=== PATIENT | female | born 1995 ===

== ENCOUNTER 2017-02-13 20:07 | Emergency (ER) | payer SELFPAY ==
[2017-02-13 20:25] VITALS: RESP 16
--- NOTE | 2017-02-13 21:14 | ED PDOC ---
HPI: Female Pain Time Seen by Provider: 02/13/17 20:40 Chief Complaint (Nursing): Female Genitourinary Chief Complaint (Provider): Abdominal Pain with EGA of 9 Weeks History Per: Patient History/Exam Limitations: no limitations Onset/Duration Of Symptoms: Days (x1 week), Intermittent Episodes Current Symptoms Are (Timing): Gone Now (not present in ED) Severity: Moderate Associated Symptoms: Constipation, Other (clear vaginal discharge) Additional Complaint(s): Ruth Olivia is a 21 year old female, with an EGA of 9 weeks and no pertinent past medical history, who presents to the ED on 02/13/17 for the evaluation of moderate lower abdominal pain that she has experienced intermittently x1 week, not currently present upon ED evaluation. Associated clear vaginal discharge also reported in addition to some feelings of constipation, which patient reports is something that she has experienced previously. Denies vaginal bleeding. Of note, patient reports having lost her previous due to bradycardia and a missed . She has had a previous ultrasound for this , reportedly performed within the [place], that showed an intrauterine . PMD: Татьяна Randolph Past Medical History Reviewed: Historical Data, Nursing Documentation, Vital Signs Vital Signs: Last Vital Signs Temp 97.4 F L 02/13/17 20:21 Pulse 89 02/13/17 20:21 Resp 16 02/13/17 20:21 BP 107/56 L 02/13/17 20:21 Pulse Ox 100 02/13/17 20:21 - Medical History PMH: Asthma - Family History Family History: States: Unknown Family Hx - Immunization History Hx Tetanus Toxoid Vaccination: No Hx Influenza Vaccination: No Hx Pneumococcal Vaccination: No - Home Medications Home Medications: Ambulatory Orders Medication Instructions Recorded Epinephrine HCl [Epipen 0.3 mg IJ ONCE PRN 09/13/16 Auto-Injector] Multivit/Folic Acid/I 1 tab PO DAILY #30 tab 02/13/17 [ Plus] - Allergies Allergies/Adverse Reactions: Allergies Allergy/AdvReac Type Severity Reaction Status Date / Time amoxicillin Allergy RASH Verified 09/13/16 12:51 morphine Allergy RASH Verified 09/13/16 12:51 strawberry Allergy ITCHING Verified 09/13/16 12:51 seafood Allergy SWELLING Uncoded 09/13/16 12:51 Review of Systems Gastrointestinal: Positive for: Abdominal Pain (intermittent lower abdominal, none in ED) Genitourinary Female: Positive for: Vaginal Discharge (clear). Negative for: Vaginal Bleeding Physical Exam - Reviewed Nursing Documentation Reviewed: Yes Vital Signs Reviewed: Yes - Physical Exam Appears: Positive for: Non-toxic, No Acute Distress Cardiovascular/Chest: Positive for: Regular Rate, Rhythm. Negative for: Murmur Respiratory: Positive for: Normal Breath Sounds. Negative for: Respiratory Distress Gastrointestinal/Abdominal: Positive for: Normal Exam, Soft. Negative for: Tenderness Pelvic Exam: Positive for: Bimanual Exam Normal (cervix is closed), Discharge ( clear), Other (examination chaperoned by Shakira Best RN) Neurologic/Psych: Positive for: Alert, Oriented - Laboratory Results Result Diagrams: 02/13/17 21:00 02/13/17 21:00 - ECG O2 Sat by Pulse Oximetry: 100 (RA) Pulse Ox Interpretation: Normal Medical Decision Making Medical Decision Makin:40 Initial Impression: constipation and normal physiologic vaginal discharge in Initial Plan: * OB 1st Tri and OB Transvaginal US * Labs * Beta HCG * Reevaluation Scribe Attestation: Documented by Tanvi Mccarty, acting as a scribe for Mk Linn MD. Provider Scribe Attestation: All medical record entries made by the Scribe were at my direction and personally dictated by me. I have reviewed the chart and agree that the record accurately reflects my personal performance of the history, physical exam, medical decision making, and the department course for this patient. I have also personally directed, reviewed, and agree with the discharge instructions and disposition. Disposition - Clinical Impression Clinical Impression: Threatened - Disposition [facility]] Disposition Time: 23:00 Condition: STABLE Prescriptions: Multivit/Folic Acid/I [ Plus] 1 tab PO DAILY #30 tab Instructions: Threatened Miscarriage (ED)
[2017-02-13 21:18] LABS: BASO % 0.5 % (0.0-2.0); EOS # 0.1 K/uL (0.0-0.7); EOS % 1.4 % (0.0-4.0); LYMPH # 2.5 K/uL (1.0-4.3); LYMPH % 26.8 % (20.0-40.0); MEAN CELL VOLUME 89.4 fl (81.0-99.0); MEAN CORPUSCULAR HEMOGLOBIN 30.1 pg (27.0-31.0); MEAN CORPUSCULAR HGB CONC 33.6 g/dL (33.0-37.0); MEAN PLATELET VOLUME 8.2 fl (7.2-11.7); MONO # 0.7 K/uL (0.0-0.8); MONO % 7.9 % (0.0-10.0); NEUT # 5.8 K/uL (1.8-7.0); NEUT % 63.4 % (50.0-75.0); NRBC % 0.2 % (0.0-0.0); RED CELL DISTRIBUTION WIDTH 13.2 % (11.5-14.5); WHITE BLOOD COUNT 9.1 K/uL (4.8-10.8)
[2017-02-13 21:36] LABS: BLOOD UREA NITROGEN 11 mg/dl (7-17); CALCIUM 8.8 mg/dL (8.4-10.2); CARBON DIOXIDE 23 mmol/L (22-30); CHLORIDE 106 mmol/L (98-107); GFR AFRICAN-AMERICAN > 60; GLUCOSE,RANDOM 69 mg/dL (65-105); SODIUM 140 mmol/l (132-148)
--- NOTE | 2017-02-13 23:37 | US ---
EXAM: US First Trimester, Transabdominal. CLINICAL HISTORY: 21 years old, female; Signs and symptoms; Lmp or gestational age (in weeks): 12/15/16 lmp; Other: C/O cramping, funny feeling in pelvis; ; Additional info: HX of spont ab p/w lower abd pain, approx 9 wks TECHNIQUE: Real-time transabdominal obstetrical ultrasound of the maternal pelvis and a first trimester with image documentation. COMPARISON: There are no prior studies for comparison. FINDINGS: Uterus: Uterus measures approximately 9 x 6.2 x 8.4 cm. There is a single gestational sac in uterus. IMPRESSION: Limited evaluation of the gravid uterus, intrauterine gestation with EXAM: US , Transvaginal. CLINICAL HISTORY: 21 years old, female; Signs and symptoms; Lmp or gestational age (in weeks): 12/15/16 lmp; Other: C/O cramping, funny feeling in pelvis; ; Additional info: HX of spont ab p/w lower abd pain, approx 9 wks TECHNIQUE: Real-time transvaginal obstetrical ultrasound of the maternal pelvis and a first trimester with image documentation. Transvaginal imaging was used for better evaluation of the fetus and adnexa. EXAM DATE/TIME: 02/13/2017 8:54 PM COMPARISON: There are no prior studies for comparison. FINDINGS: Gestation: There is a single gestational sac in uterus. [place] rump length measures 19.6 mm. There is a heart rate of 147 beats per minute. A yolk sac is present, internal diameter measures 3.5 mm. Ovaries: Right ovary measures 3.4 x 2.5 x 2.3 cm.There are multiple small follicles. Left ovary measures approximately 2.3 x 1.9 x 1.3 cm. There are small follicles on the left.There is flow in both ovaries on Doppler imaging. IMPRESSION: 8 week 4 day single living intrauterine gestation, estimated date of delivery 09/21/17
[2017-02-13 23:58] VITALS: BP 110/72; PULSE 86; TEMP 98.2
[2017-02-14 15:49] VITALS: O2SAT 100
== END 2017-02-13 23:57 | disposition home or self-care (01) ==
LOC: H.ER 20:07
DX: O20.0 Threatened abortion (principal); Z3A.08 8 weeks gestation of pregnancy; O26.891 Other specified pregnancy related conditions, first trimester

== ENCOUNTER 2017-03-25 11:11 | Emergency (ER) | payer MEDICAID, OTHER ==
[2017-03-25 11:53] VITALS: BP 103/62; PULSE 75; RESP 14; TEMP 98.1; O2SAT 100
--- NOTE | 2017-03-25 12:23 | ED PDOC ---
HPI: CCC, URI, Sore Throat Time Seen by Provider: 03/25/17 12:07 Chief Complaint (Nursing): ENT Problem Chief Complaint (Provider): ENT Problem History Per: Patient History/Exam Limitations: no limitations Onset/Duration Of Symptoms: Days (x1) Current Symptoms Are (Timing): Still Present Location Of Pain: Ear(s) (left earache) Associated Symptoms: Fever. denies: Sore Throat, Cough Ear Symptoms: Left: Ear Pain Additional Complaint(s): 12:07 Ruth Olivia, 21 year old female presents to the ED on 03/25/17, with bilateral lower pelvic pain beginning yesterday. The patient states the pain has improved, but is still present. The patient's last ultrasound was taken last month and the results were normal. She denies any vaginal bleeding. In addition, the patient also reports she developed a left ear ache and felt like she had a fever, but did not take her temperature. The patient took Tylenol , stating her last dose of Tylenol was yesterday. The patient has no fever today and denies any occurrence of sore throat, cough, congestion, trauma, history of ectopic , nausea, vomiting, diarrhea, or dysuria. The patient's last menstrual period was December 15. Of note, the patient is under the care of Dr. Traore Past Medical History Reviewed: Historical Data, Nursing Documentation, Vital Signs Vital Signs: Last Vital Signs Temp 98.1 F 03/25/17 11:40 Pulse 75 03/25/17 11:40 Resp 14 03/25/17 11:40 BP 103/62 03/25/17 11:40 Pulse Ox 100 03/25/17 12:38 - Medical History PMH: Asthma - Family History Family History: States: Unknown Family Hx - Immunization History Hx Tetanus Toxoid Vaccination: No Hx Influenza Vaccination: No Hx Pneumococcal Vaccination: No - Home Medications Home Medications: Ambulatory Orders Medication Instructions Recorded Epinephrine HCl [Epipen 0.3 mg IJ ONCE PRN 09/13/16 Auto-Injector] Multivit/Folic Acid/I 1 tab PO DAILY #30 tab 02/13/17 [ Plus] - Allergies Allergies/Adverse Reactions: Allergies Allergy/AdvReac Type Severity Reaction Status Date / Time amoxicillin Allergy RASH Verified 03/25/17 11:42 morphine Allergy RASH Verified 03/25/17 11:42 strawberry Allergy ITCHING Verified 03/25/17 11:42 seafood Allergy SWELLING Uncoded 03/25/17 11:42 Review of Systems Constitutional: Negative for: Fever, Other (no history of trauma) ENT: Positive for: Ear Pain (Left earache). Negative for: Nose Congestion, Throat Pain (no sore throat) Respiratory: Negative for: Cough Gastrointestinal: Positive for: Abdominal Pain (bilateral lower pelvic pain). Negative for: Nausea, Vomiting, Diarrhea Genitourinary Female: Negative for: Dysuria, Vaginal Bleeding, Other (no history of ectopic ) Physical Exam - Reviewed Nursing Documentation Reviewed: Yes Vital Signs Reviewed: Yes - Physical Exam Appears: Positive for: Well, Non-toxic, No Acute Distress Head Exam: Positive for: ATRAUMATIC, NORMOCEPHALIC Skin: Positive for: Normal Color, Warm, Dry Eye Exam: Positive for: Normal appearance ENT: Positive for: Normal ENT Inspection Neck: Positive for: Normal Cardiovascular/Chest: Positive for: Regular Rate, Rhythm, Chest Non Tender Respiratory: Positive for: Normal Breath Sounds. Negative for: Respiratory Distress Gastrointestinal/Abdominal: Positive for: Normal Exam, Soft. Negative for: Tenderness Extremity: Positive for: Normal ROM Neurologic/Psych: Positive for: Alert, Oriented (x3) - Laboratory Results Result Diagrams: 03/25/17 12:40 03/25/17 12:40 - ECG O2 Sat by Pulse Oximetry: 100 (RA) Pulse Ox Interpretation: Normal - Progress ED Course And Treament: Pelvic US: Fourteen weeks 4 days live intrauterine gestation. Adequate interval progression compared to the prior study. Medical Decision Making Medical Decision Makin:07 Initial Impression: Bilateral lower pelvic pain, left earache, subjective fever. Initial Plan: * Beta-HCG Quantitative STAT * COMP Metabolic Panel STAT * CBC (with differential) STAT * Urine C&S [Urine Culture] STAT * IV Insertion (Saline Lock) Once * Influenza A B STAT * Rapid Strep Group A Antigen STAT * Urinalysis STAT * OB Transvaginal [US] STAT * Reevaluation Scribe~Attestation: Documented by Geri Perez, acting as a~franklinibe~for Armando Candelaria PA-C. Provider~Scribe~Attestation: All medical record entries made by the~Ashelywere at my direction and personally dictated by me. I have reviewed the chart and agree that the record accurately reflects my personal performance of the history, physical exam, medical decision making, and the department course for this patient. I have also personally directed, reviewed, and agree with the discharge instructions and disposition. Disposition - Clinical Impression Clinical Impression: - Patient ED Disposition Is Patient to be Admitted: No - Disposition Referrals: Zuly Traore MD [Staff Provider] - Disposition: Routine/Home Disposition Time: 15:26 Condition: STABLE Additional Instructions: Follow up with your OBGYN in 2 days WITHOUT FAIL. Instructions: (ED) Print Language: SAMI
[2017-03-25 12:50] LABS: BASO % 0.3 % (0.0-2.0); EOS # 0.1 K/uL (0.0-0.7); EOS % 1.4 % (0.0-4.0); HEMATOCRIT 37.1 % (34.0-47.0); LYMPH % 24.1 % (20.0-40.0); MEAN CELL VOLUME 90.9 fl (81.0-99.0); MEAN CORPUSCULAR HEMOGLOBIN 30.5 pg (27.0-31.0); MEAN CORPUSCULAR HGB CONC 33.6 g/dL (33.0-37.0); MEAN PLATELET VOLUME 8.2 fl (7.2-11.7); MONO # 0.5 K/uL (0.0-0.8); MONO % 5.8 % (0.0-10.0); NEUT # 5.7 K/uL (1.8-7.0); NEUT % 68.4 % (50.0-75.0); RED CELL DISTRIBUTION WIDTH 14.2 % (11.5-14.5); WHITE BLOOD COUNT 8.3 K/uL (4.8-10.8)
[2017-03-25 12:59] LABS: RBC URINE 2 /hpf (0-3); URINE BACTERIA RARE (<OCC); URINE BILIRUBIN NEGATIVE (NEGATIVE); URINE BLOOD NEGATIVE (NEGATIVE); URINE COLOR YELLOW (YELLOW); URINE GLUCOSE (UA) NEG (Normal); URINE KETONE NEGATIVE (NEGATIVE); URINE LEUKOCYTE ESTERASE NEG Leu/uL (Negative); URINE PROTEIN NEGATIVE (NEGATIVE); URINE UROBILINOGEN 0.2-1.0 mg/dL (0.2-1.0); WBC URINE 2 /hpf (0-5)
[2017-03-25 14:18] LABS: CHLORIDE 105 mmol/L (98-107)
[2017-03-25 14:19] LABS: POTASSIUM 4.2 MMOL/L (3.6-5.0); SODIUM 137 mmol/l (132-148)
[2017-03-25 14:21] LABS: BILIRUBIN,TOTAL 0.3 mg/dl (0.2-1.3); CARBON DIOXIDE 25 mmol/L (22-30); GFR AFRICAN-AMERICAN > 60
[2017-03-25 14:22] LABS: ALB/GLOB RATIO 1.2 (1.0-2.1); ALKALINE PHOSPHATASE 39 U/L (38-126); ALT/SGPT 21 U/L (9-52); AST/SGOT 20 U/L (14-36); BLOOD UREA NITROGEN 7 mg/dl (7-17); CALCIUM 8.7 mg/dL (8.4-10.2); GLUCOSE,RANDOM 72 mg/dL (65-105); TOTAL PROTEIN 6.5 G/DL (6.3-8.2)
--- NOTE | 2017-03-25 15:23 | US ---
PROCEDURE: Limited obstetrical ultrasound HISTORY: pelvic pain COMPARISON: 02/13/2017.. TECHNIQUE: Standard protocol for this study/examination. FINDINGS: Variable presentation. Anterior Placenta. No evidence of abruption or previa Gestational age derived from LMP 14 weeks 2 days Gestational age derived from the following biometric parameters 14 weeks 4 days . Biparietal diameter 2.74 cm Head circumference9.33 cm Abdominal circumference 8.42 cm Femur length 1.45 cm Estimated weight 99.1 g Calculated cardiac rate 143 beats per min. Closed cervix measuring 2.94 cm IMPRESSION: Fourteen weeks 4 days live intrauterine gestation. Adequate interval progression compared to the prior study. THAD based on LMP: 09/21/2017 THAD based on biometry: 09/19/2017
== END 2017-03-25 16:13 | disposition home or self-care (01) ==
LOC: H.ER 11:11
DX: R10.2 Pelvic and perineal pain (principal); O26.892 Other specified pregnancy related conditions, second trimester; H92.02 Otalgia, left ear; J45.909 Unspecified asthma, uncomplicated; Z88.0 Allergy status to penicillin

== ENCOUNTER 2017-05-02 08:44 | Emergency (ER) | payer MEDICAID ==
[2017-05-02 08:49] VITALS: BMI 22.4
[2017-05-02 08:51] VITALS: BP 116/64; PULSE 104; RESP 20; TEMP 98.2; O2SAT 100
--- NOTE | 2017-05-02 09:13 | ED PDOC ---
HPI: Female Pain Time Seen by Provider: 05/02/17 09:01 Chief Complaint (Provider): Vaginal spotting History Per: Patient History/Exam Limitations: no limitations Onset/Duration Of Symptoms: Days (Today) Current Symptoms Are (Timing): Gone Now Additional Complaint(s): Pt. woke up today and went to the bathroom. She noticed a small pink discharge come from her vaginal area. No other pain, weakness, headaches, dysuria, nausea, vomit. No back pain. No weakness. fever, cough. Had ultrasound and found out sex of baby. Past Medical History Reviewed: Nursing Documentation, Vital Signs Vital Signs: Last Vital Signs Temp 98.2 F 05/02/17 08:50 Pulse 104 H 05/02/17 08:50 Resp 20 05/02/17 08:50 BP 116/64 05/02/17 08:50 Pulse Ox 100 05/02/17 08:50 - Surgical History Surgical History: No Surg Hx - Family History Family History: States: Unknown Family Hx - Social History Current smoker - smoking cessation education provided: No Alcohol: None Drugs: Denies - Immunization History Hx Tetanus Toxoid Vaccination: No Hx Influenza Vaccination: No Hx Pneumococcal Vaccination: No - Home Medications Home Medications: Ambulatory Orders Medication Instructions Recorded Epinephrine HCl [Epipen 0.3 mg IJ ONCE PRN 09/13/16 Auto-Injector] Multivit/Folic Acid/I 1 tab PO DAILY #30 tab 02/13/17 [ Plus] - Allergies Allergies/Adverse Reactions: Allergies Allergy/AdvReac Type Severity Reaction Status Date / Time amoxicillin Allergy RASH Verified 03/25/17 11:42 morphine Allergy RASH Verified 03/25/17 11:42 strawberry Allergy ITCHING Verified 03/25/17 11:42 seafood Allergy SWELLING Uncoded 03/25/17 11:42 Review of Systems Constitutional: Negative for: Weakness Eyes: Negative for: Vision Change Cardiovascular: Negative for: Chest Pain, Orthopnea, Edema, Light Headedness Respiratory: Negative for: Cough, Shortness of Breath Gastrointestinal: Negative for: Nausea, Vomiting, Abdominal Pain Genitourinary Female: Positive for: Vaginal Discharge, Vaginal Bleeding. Negative for: Dysuria, Hematuria, Pelvic Pain Musculoskeletal: Negative for: Neck Pain Skin: Negative for: Rash Neurological: Negative for: Weakness, Numbness Physical Exam - Reviewed Nursing Documentation Reviewed: Yes Vital Signs Reviewed: Yes - Physical Exam Appears: Positive for: Well, Non-toxic, No Acute Distress Head Exam: Positive for: ATRAUMATIC, NORMAL INSPECTION, NORMOCEPHALIC Skin: Positive for: Normal Color, Warm, DRY Neck: Positive for: Normal, Painless ROM Cardiovascular/Chest: Positive for: Regular Rate, Rhythm Respiratory: Positive for: CNT, Normal Breath Sounds Gastrointestinal/Abdominal: Positive for: Normal Exam, Bowel Sounds, Soft. Negative for: Tenderness Back: Positive for: Normal Inspection. Negative for: L CVA Tenderness, R CVA Tenderness Extremity: Positive for: Normal ROM. Negative for: Tenderness, Pedal Edema Neurologic/Psych: Positive for: Alert, Oriented - ECG O2 Sat by Pulse Oximetry: 100 Pulse Ox Interpretation: Normal - Progress ED Course And Treament: US from beginning of March, MARIE. 1109: Stable. AAOx3. Pain free. Tolerated PO. FU with obgyn. FHR 141. Disposition - Clinical Impression Clinical Impression: Abdominal pain in - Patient ED Disposition Is Patient to be Admitted: No Counseled Patient/Family Regarding: Studies Performed, Diagnosis, Need For Followup - Disposition [facility]] - 05/03/17 Disposition: Routine/Home Disposition Time: 11:11 Condition: STABLE Additional Instructions: Return if not better in 3 days. Instructions: (ED) Forms: [employer] (Swedish)
== END 2017-05-02 11:24 | disposition home or self-care (01) ==
LOC: H.ER 08:44
DX: O26.899 Other specified pregnancy related conditions, unspecified trimester (principal)

== ENCOUNTER 2017-05-13 17:40 | Emergency (ER) | payer MEDICAID ==
[2017-05-13 18:08] VITALS: BMI 23.9
[2017-05-13 18:41] LABS: URINE BILIRUBIN NEGATIVE (NEGATIVE); URINE BLOOD NEGATIVE (NEGATIVE); URINE COLOR AMBER (YELLOW); URINE GLUCOSE (UA) NEG (Normal); URINE KETONE NEGATIVE (NEGATIVE); URINE LEUKOCYTE ESTERASE NEG Leu/uL (Negative); URINE PROTEIN NEGATIVE (NEGATIVE); URINE UROBILINOGEN 0.2-1.0 mg/dL (0.2-1.0)
--- NOTE | 2017-05-13 19:26 | US ---
EXAM: US Uterus, Limited CLINICAL HISTORY: 21 years old, female; Pain; Other: Cramps; Gestational age or lmp: 12/08; ; Additional info: Abdominal cramping, low back pain, 21 weeks , evaluate cervix TECHNIQUE: Real-time ultrasound of the maternal uterus (limited) with image documentation. EXAM DATE/TIME: 05/13/2017 6:23 PM COMPARISON: No relevant prior studies available. FINDINGS: A limited exam only was performed, specifically to evaluate the cervix. Only the cervix was imaged. The fetus was not evaluated. The cervix ranges in length from 3.7 to 4.0 cm transvaginally (normal greater than 3 cm). It appears closed. No evidence of funneling. IMPRESSION: Limited exam. Only the cervix was imaged. The fetus was not evaluated. Normal cervical length, ranging from 3.7 to 4.0 cm. No evidence of cervical incompetence.
== END 2017-05-13 19:45 | disposition home or self-care (01) ==
LOC: H.EROB2 17:40
DX: O47.02 False labor before 37 completed weeks of gestation, second trimester (principal); Z3A.21 21 weeks gestation of pregnancy; O09.299 Supervision of pregnancy with other poor reproductive or obstetric history, unspecified trimester

== ENCOUNTER 2017-05-31 23:21 | Observation (INO) | payer MEDICAID, OTHER ==
[2017-05-31 23:59] VITALS: BMI 26.4
[2017-06-01] MEDS ORDERED: Sodium Chloride 0.9% 1,000 ML IV SCH ×2 (00:30)
[2017-06-01] MEDS ORDERED: Lactated Ringer's 1,000 ML IV SCH ×2 (00:45)
[2017-06-01 00:53] LABS: BASO % 0.4 % (0.0-2.0); EOS # 0.3 K/uL (0.0-0.7); EOS % 2.8 % (0.0-4.0); HEMOGLOBIN 10.3 g/dL (12.0-16.0); LYMPH # 3.1 K/uL (1.0-4.3); LYMPH % 26.9 % (20.0-40.0); MEAN CELL VOLUME 91.5 fl (81.0-99.0); MEAN CORPUSCULAR HEMOGLOBIN 30.1 pg (27.0-31.0); MEAN PLATELET VOLUME 8.8 fl (7.2-11.7); NEUT % 60.9 % (50.0-75.0); RBC 3.41 Mil/uL (3.80-5.20); RED CELL DISTRIBUTION WIDTH 13.4 % (11.5-14.5); WHITE BLOOD COUNT 11.5 K/uL (4.8-10.8)
[2017-06-01 01:03] LABS: ALB/GLOB RATIO 1.1 (1.0-2.1); ALBUMIN 3.2 g/dL (3.5-5.0); ALT/SGPT 43 U/L (9-52); AST/SGOT 22 U/L (14-36); BLOOD UREA NITROGEN 9 mg/dl (7-17); CALCIUM 8.5 mg/dL (8.4-10.2); GFR AFRICAN-AMERICAN > 60; GFR NON-AFRICAN AMERICAN > 60
[2017-06-01 01:16] LABS: SQUAMOUS EPITHIAL 1 /hpf (0-5); URINE AMORPHOUS SEDIMENT MODERATE /ul (<OCC); URINE BILIRUBIN NEGATIVE (NEGATIVE); URINE BLOOD NEGATIVE (NEGATIVE); URINE CLARITY CLOUDY (Clear); URINE COLOR YELLOW (YELLOW); URINE GLUCOSE (UA) NEG (Normal); URINE LEUKOCYTE ESTERASE NEG Leu/uL (Negative); URINE NITRATE NEGATIVE (NEGATIVE); URINE PROTEIN NEGATIVE (NEGATIVE); URINE UROBILINOGEN 0.2-1.0 mg/dL (0.2-1.0)
--- NOTE | 2017-06-01 07:58 | OBHP ---
Datetime: 06/01/2017 00:33 IP Adm Impression: , intrauterine ; No Active Labor IP Chief Complaint Other: diarrhea and abdominal cramp IP Admit Plan: Observation/Evaluation; Discharge home Admit Comment, IP Provider: 21 yo at 24 weeks of gestational age EDC 09/21/17 confirmed w/ US at 8 weeks presents to the ED complaining abdominal cramping and 10 episodes of diarrhea since 4 a m on 05/31/17. pt describes diarrhea as 'mustard like'. denies seeing blood or mucus in stool. no rece nt travel or recent abx use. denies dysuria, urinary frequency or urgency. denies fever, chills or vo miting. Patient denies any contractions, vaginal bleeding, leakage of fluids. last OB visit to [facility] on 05/17/17 and next appointment on 06/16/17. 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 medications: PNV, acetaminophen prn allergies: amoxicillin--rash; morphine--bradycardia; peanuts and strawberries..rash, seafood and s hrimp...anaphylaxis. Assessment: 21 yo at 24 weeks GA presents to OB ED for multiple episodes of diarrhea and a bdominal cramping. plan: continue heart monitoring IV fluids UA, CBC, CMP will be ordered if labs comes negative, pt will be safely discharged home w/ gastroenteritis precaution. case presented and discussed with on-call attending Dr. Gamboa. Sultan Morales, PGY1 obh addendum pt seen _ evaluated by me agree with above assessment and plan s: pt states she feels much better this morning. denies abd cramping or continued diarrhea i: dehydration with diarrhea p: ok for d/c home p: as Extremities - PN: Normal Abdomen - PN: Normal Back - PN: Normal Lungs - PN: Normal Heart - PN: Abnormal Neurologic - PN: Normal HEENT - PN: Normal General - PN: Normal Comments, ACOG Physical Exam: cardio: RRR, systolic heart murmur Gestation - Est Wks by US: 24.0 IP Hx Assessment: The History has been Reviewed and is Current EGA AdmitDate IP: 24.0 Vital Signs Provider: Reviewed IP Chief Complaint: Maternal discomfort
== END 2017-06-01 08:00 | disposition home or self-care (01) ==
LOC: H.EROB2 23:21 → H.L&D 06-01 04:50
PROVIDERS: ADMIT Obstetrics & Gynecology; ATTEND Obstetrics & Gynecology
DX: O99.89 Other specified diseases and conditions complicating pregnancy, childbirth and the puerperium (principal); Z3A.24 24 weeks gestation of pregnancy; R19.7 Diarrhea, unspecified; E86.0 Dehydration; Z88.6 Allergy status to analgesic agent; Z91.010 Allergy to peanuts; Z88.0 Allergy status to penicillin; Z91.013 Allergy to seafood

== ENCOUNTER 2017-06-09 17:50 | Emergency (ER) | payer MEDICAID, OTHER ==
[2017-06-09 19:16] VITALS: BMI 25.1
[2017-06-09] MEDS ORDERED: Lactated Ringer's 1,000 ML IV SCH (19:45)
[2017-06-09 20:05] LABS: SQUAMOUS EPITHIAL 7 /hpf (0-5); URINE BACTERIA RARE (<OCC); URINE BILIRUBIN NEGATIVE (NEGATIVE); URINE BLOOD NEGATIVE (NEGATIVE); URINE CLARITY SLIGHTY-CLOUDY (Clear); URINE COLOR YELLOW (YELLOW); URINE GLUCOSE (UA) NEG (Normal); URINE LEUKOCYTE ESTERASE NEG Leu/uL (Negative); URINE NITRATE NEGATIVE (NEGATIVE); URINE PROTEIN NEGATIVE (NEGATIVE); URINE UROBILINOGEN 0.2-1.0 mg/dL (0.2-1.0)
[2017-06-09 20:31] LABS: BASO # 0.1 K/uL (0.0-0.2); BASO % 0.8 % (0.0-2.0); EOS # 0.2 K/uL (0.0-0.7); EOS % 1.9 % (0.0-4.0); HEMOGLOBIN 10.9 g/dL (12.0-16.0); LYMPH # 2.2 K/uL (1.0-4.3); LYMPH % 18.3 % (20.0-40.0); MEAN CELL VOLUME 92.8 fl (81.0-99.0); MEAN CORPUSCULAR HEMOGLOBIN 30.3 pg (27.0-31.0); MEAN CORPUSCULAR HGB CONC 32.6 g/dL (33.0-37.0); MONO # 1.1 K/uL (0.0-0.8); MONO % 8.7 % (0.0-10.0); NEUT # 8.5 K/uL (1.8-7.0); NEUT % 70.3 % (50.0-75.0); RBC 3.61 Mil/uL (3.80-5.20); RED CELL DISTRIBUTION WIDTH 13.7 % (11.5-14.5); WHITE BLOOD COUNT 12.1 K/uL (4.8-10.8)
[2017-06-09 20:41] LABS: ALB/GLOB RATIO 1.2 (1.0-2.1); ALBUMIN 3.3 g/dL (3.5-5.0); ALT/SGPT 56 U/L (9-52); AST/SGOT 28 U/L (14-36); BLOOD UREA NITROGEN 10 mg/dl (7-17); CALCIUM 8.7 mg/dL (8.4-10.2); GFR AFRICAN-AMERICAN > 60; GFR NON-AFRICAN AMERICAN > 60
== END 2017-06-09 21:55 | disposition home or self-care (01) ==
LOC: H.EROB2 17:50 → H.EROB 18:01 → H.EROB2 21:55
DX: O47.02 False labor before 37 completed weeks of gestation, second trimester (principal); Z3A.25 25 weeks gestation of pregnancy

== ENCOUNTER 2017-07-16 17:18 | Emergency (ER) | payer OTHER ==
[2017-07-16 17:46] VITALS: BMI 26.9
[2017-07-16] MEDS: Lactated Ringer's 1,000 ML IV SCH ×2 (18:15→19:15)
[2017-07-16 18:42] LABS: HEMATOCRIT 34.9 % (34.0-47.0); MEAN CORPUSCULAR HEMOGLOBIN 30.5 pg (27.0-31.0); MEAN CORPUSCULAR HGB CONC 33.2 g/dL (33.0-37.0); RED CELL DISTRIBUTION WIDTH 13.4 % (11.5-14.5)
[2017-07-16 18:58] LABS: ALB/GLOB RATIO 1.1 (1.0-2.1); ALKALINE PHOSPHATASE 64 U/L (38-126); ALT/SGPT 31 U/L (9-52); AST/SGOT 23 U/L (14-36); BILIRUBIN,TOTAL 0.3 mg/dl (0.2-1.3); BLOOD UREA NITROGEN 8 mg/dl (7-17); CALCIUM 8.8 mg/dL (8.4-10.2); CARBON DIOXIDE 22 mmol/L (22-30); CHLORIDE 108 mmol/L (98-107); GFR AFRICAN-AMERICAN > 60; GLUCOSE,RANDOM 78 mg/dL (65-105); SODIUM 135 mmol/l (132-148); TOTAL PROTEIN 6.5 G/DL (6.3-8.2)
--- NOTE | 2017-07-16 20:54 | OBHP ---
Datetime: 07/16/2017 18:22 IP Adm Impression: , intrauterine ; No Active Labor IP Chief Complaint Other: vomiting and fever of 101 yesterday IP Admit Plan: Observation/Evaluation; Discharge home Admit Comment, IP Provider: 21 y/o at 30.3 presenting to L_D if reports of spiking a fever of 1 01 yesterday that was controlled with tylenol, and this morning vomited 3x for which the last 2 was b lood stitched. has not vomited again since, and also she has not felt the fetus move that much since this morning. She has been diagnoised with gerd during the for which she takes pepcid, othe r than not other issues. denies any vaginal bleeding, dysuria, contractions, loss of fluid, frequency , headache or visual changes. PMHX: heart murmur at young age, cleared by cardiology PSHX: denies Allergies-Penicillins, Morphine OB hx: one A/P: 21 y/o at 30.3 presenting with decreased movement and symptoms concerning for pillo l etiology monitoring - currrently tracing is unremarkable, category I cbc. cmp, IVF observe on monitor 19:20 pt re-evaluated, feeling better, labs reviewed. tracing remain category I, pt is being disch arged, already has PNC appt for 07/[address] Jeffry Pinedo PGY 3 [facility] agree with the note patient has been cleared for dich arge. Pt to follow up with Dr. Teran this week Pelvic Type - PN: Adequate Extremities - PN: Normal Abdomen - PN: Normal Back - PN: Normal Breast - PN: Not Done Lungs - PN: Normal Heart - PN: Normal Thyroid - PN: Normal Neurologic - PN: Normal HEENT - PN: Normal General - PN: Normal FHR - Baseline A Provider: 145 Gestation - Est Wks by US: 30.3 EGA AdmitDate IP: 30.3 Vital Signs Provider: Reviewed; Within Normal Limits IP Chief Complaint: Decreased movement; Other NICHD Variability Prov Fetus A: Moderate 6-25bpm NICHD Accel Fetus A IP Provider: [id number] FHR Category Provider Fetus A: Category I NICHD Decel Fetus A IP Provider: None Genitourinary Exam: Normal DTRs - PN: Normal Datetime: 06/09/2017 18:25 Comments, ACOG Physical Exam: RRR, heart murmur.
[2017-07-17 01:20] VITALS: BP 118/56; PULSE 73; RESP 18; TEMP 97.9; O2SAT 98
== END 2017-07-16 20:40 | disposition home or self-care (01) ==
LOC: H.EROB2 17:18
DX: O47.03 False labor before 37 completed weeks of gestation, third trimester (principal); Z3A.30 30 weeks gestation of pregnancy
CPT/HCPCS: 80053; 85027; 96360; 99283; J7120

== ENCOUNTER 2017-09-16 09:18 | Emergency (ER) | payer OTHER ==
[2017-09-16 10:12] VITALS: BMI 32.5
--- NOTE | 2017-09-16 11:19 | OBHP ---
Datetime: 09/16/2017 10:49 IP Adm Impression: Term, intrauterine ; Intact Membranes IP Chief Complaint Other: Passed mucus plug and spotting IP Adm Impression Other: lag x 1 week on recent u/s, here with r/o labor, found to have Catego ry 2 tracing IP Admit Plan: Observation/Evaluation Admit Comment, IP Provider: 21 y/o at 39w2d EDC 09/21/17 based on LMP 12/15/16 c/w 8wk u/s. The record is current and I reviewed it myself. Patient reports +fm, she is unsure if she has had lof or if she can't hold her urine for the past 2 days, no deniz vb, passed mucus plug this morning and had spotting with wiping twice, irregular con tractions. PNC: [facility] [address] PNL: GCT 63, FTS neg, A+, ab neg, H/H 11.7/34.3, GC/chl neg, CF neg, GBS neg 08/19/17, hbsag neg, h iv neg, rpr nr, rubella immune, ucx neg, All: amox rash, hives, difficulty breathing, morphine HR drops PNI: 1.Anatomy scan showed double LV echogenic foci, low risk NIPT, 2. serial growth u/s showing AC/FL/HL lagging x 1week U/S: 09/06/17 vertex, ant placenta, efw [id number] 26th%, PObhx: 2012: SAB, needed d_c at 8wks, complicated by decreased HR from morphine Medical hx: childhood heart murmur, benign Surgical hx: D_C 2012, ignuinal hernia repair at 8y/o Social hx: lives w/ mom, FOB in [place], unemployed, denies toxic habits x 3 Pgynhx: chlamydia 2013, pap normal ROS: denies cp, sob, palpitations, abd pain, rash, fever, chills Exam see above A/P: at 39w2d here for r/o labor, r/o rupture and intermittend contractions 1. Patient is not in labor 2. Fetus: category 2 tracing, will obtain BPP and prolonged monitoring, if continues to be n onreassuring will admit and induce. 3. Patient is not ruptured 4. case d/w Dr. Gomez Pelvic Type - PN: Adequate Extremities - PN: Normal Abdomen - PN: Normal Back - PN: Normal Breast - PN: Not Done Lungs - PN: Normal Heart - PN: Normal Thyroid - PN: Not Done Neurologic - PN: Normal HEENT - PN: Normal General - PN: Normal FHR - Baseline A Provider: 140 Membranes, Provider: Intact Contraction Comments Provider: occasional Comments, ACOG Physical Exam: SPE: cervix visualzied, no pooling, no fluid with valsalva, neg nitraz ine SVE: 1-2cm, 50, -3, vertex Pool Provider: Negative Nitrazine Provider: Negative EGA AdmitDate IP: 39.2 Vital Signs Provider: Reviewed; Within Normal Limits IP Chief Complaint: Uterine contractions; Suspected ruptured membranes; Other NICHD Variability Prov Fetus A: Moderate 6-25bpm NICHD Accel Fetus A IP Provider: 15X15 FHR Category Provider Fetus A: Category II NICHD Decel Fetus A IP Provider: Variable Dilatation, Provider: 1-2 Effacement, Provider: 50 Station, Provider: -3 Genitourinary Exam: Normal DTRs - PN: Normal
--- NOTE | 2017-09-16 14:39 | US ---
PROCEDURE: Limited obstetrical ultrasound examination HISTORY: CATEGORY 2 TRACING COMPARISON: Not available TECHNIQUE: Limited obstetrical ultrasound examination was performed specifically for limited biophysical profile examination. FINDINGS: Examination demonstrates a single live intrauterine gestation in cephalic presentation. The heart rate is 131 beats per minute. An anterior placenta is identified. The inferior margin of the placenta could not be adequately visualized. The cervix could not be adequately imaged due to the cephalic presentation. Cannot exclude previa on the basis of this examination. anatomy was not evaluated. age determination was not made on the basis of this examination. Amniotic fluid quantitation was not made at this time. Biophysical profile examination yields a score of 8 out of 8 IMPRESSION: Biophysical profile score 8 out of 8. See above.
--- NOTE | 2017-09-16 14:41 | OBHP ---
Datetime: 09/16/2017 14:33 IP Admit Plan: Discharge home Admit Comment, IP Provider: Patient reassesed, has good movement, reactive NST and BPP 8/8. Will discharge home with strict labor precautions, kickcounts, has appt in 4 days for prenat al visit with NST. OB ED precautions given. DC home
[2017-09-16 19:07] VITALS: BP 112/59; PULSE 83
== END 2017-09-16 14:45 | disposition home or self-care (01) ==
LOC: H.EROB2 09:18 → H.L&D 09:47 → H.EROB2 14:45
DX: O47.1 False labor at or after 37 completed weeks of gestation (principal); Z3A.39 39 weeks gestation of pregnancy